=== PATIENT | male | born 1990 | race Two or more races ===

== ENCOUNTER 2018-01-06 11:16 | Day surgery (SDC) | payer OTHER ==
[2018-01-06] VITALS (10 sets, daily range): BP systolic 116–140; BP diastolic 59–89
[~2018-01-06] VITALS: Ht 167.6 cm; Wt 70.3 kg
--- NOTE | 2018-01-06 07:26 | Pre-Procedure Note/Attestation ---
Pre-Procedure Note/Attestation Complete Prior to Procedure Planned Procedure: left Procedure Narrative: shoulder arthroscopy possible labral repair Indications for Procedure Pre-Operative Diagnosis: left shoulder labral tear Attestation I attest that I discussed the nature of the procedure; its benefits; risks and complications; and alternatives (and the risks and benefits of such alternatives ), prior to the procedure, with the patient (or the patient's legal rental sales representative). I attest that, if there was a reasonable possibility of needing a blood transfusion, the patient (or the patient's legal rental sales representative) was given the [facility] standardized written summary, pursuant to the [place] Blood Safety Act ([place] Health and Safety Code # 1645, as amended). I attest that I re-evaluated the patient just prior to the surgery and that there has been no change in the patient's H&P, except as documented below: Eusebio Ashley MD Jan 06, 2018 07:26
--- NOTE | 2018-01-06 07:27 | Operative Note - PDOC ---
Operative Note Operative Note Pre-op Diagnosis: left shoulder labral tear Procedure: see op report Post-op Diagnosis: same as pre-op plus Operative Findings: consistent w/pre-op dx studies Anesthesia: general Specimen: none Complications: none Condition: stable Estimated Blood Loss: none Implant(s) used?: Yes Eusebio Ashley MD Jan 06, 2018 07:27
[~2018-01-06 11:16] MED LIST: D5 1/2NS 1,000 ML IV SCH; HYDROmorphone 1mg/ml Carpuject SUBQ PRN; NKM; Norco 5mg/325mg tab ORAL PRN; Tylenol #3 tab (300mg/30mg) ORAL PRN; ceFAZolin 1gm IVPB IVPB ONE; celeBREX 200mg Cap **SURGERY PATIENTS ONLY ORAL ONE; oxyCONTIN 20mg tab ORAL ONE
[2018-01-06] MEDS ORDERED: oxyCONTIN 20mg tab ORAL ONE (12:12)
[2018-01-06] MEDS ORDERED: celeBREX 200mg Cap **SURGERY PATIENTS ONLY ORAL ONE (12:12)
[2018-01-06] MEDS ORDERED: Lidocaine 1% MPF 10mg/ml 5ml ONE (13:00)
[2018-01-06] MEDS ORDERED: fentaNYL 100 mcg/2 mL IV ONE (13:05)
[2018-01-06] MEDS ORDERED: Midazolam 2mg/2ml Inj ONE (13:05)
[2018-01-06] MEDS ORDERED: Ketorolac 30mg Inj ONE ×2 (13:06→15:07)
[2018-01-06] MEDS ORDERED: Propofol 200mg/20ml IV ONE (13:06)
--- NOTE | 2018-01-06 13:17 | Anethesia Preoperative Eval ---
Anesthesia Pre-op PMH/ROS General Date of Evaluation: Jan 06, 2018 Time of Evaluation: 13:14 Anesthesiologist: Rosa ASA Score: ASA 2 Mallampati Score Class I : Soft palate, uvula, fauces, pillars visible Class II: Soft palate, uvula, fauces visible Class III: Soft palate, base of uvula visible Class IV: Only hard plate visible Mallampati Classification: Class II Surgeon: Dion Diagnosis: L shoulder pain Surgical Procedure: L schoulder sscope Anesthesia History: none Family History: no anesthesia problems Allergies: Coded Allergies: No Known Allergies (Unverified , 01/06/18) Medications: see eMAR Patient NPO?: Yes Past Medical History Cardiovascular: Denies: HTN, CAD, [place], valve dz, arrhythmia, other Pulmonary: Denies: asthma, COPD, NAHOMI, other Gastrointestinal/Genitourinary: Reports: GERD - mild; Denies: CRI, ESRD, other Neurologic/Psychiatric: Denies: dementia, CVA, depression/anxiety, TIA, other Endocrine: Denies: DM, hypothyroidism, steroids, other HEENT: Denies: cataract (L), cataract (R), glaucoma, [facility] (L), [facility] (R), other Hematology/Immune: Denies: anemia, DVT, bleeding disorder, other Musculoskeletal/Integumentary: Denies: OA, RA, DJD, DDD, edema, other PMH Narrative: as above PSxH Narrative: none Anesthesia Pre-op Phys. Exam Physician Exam Last Vital Signs Date Time Temp Pulse Resp B/P (MAP) Pulse Ox O2 Delivery O2 Flow Rate FiO2 01/06/18 12:09 97.0 58 18 116/64 99 Room Air Constitutional: NAD Neurologic: CN 2-12 intact Cardiovascular: RRR, no M/R/G Respiratory: CTA Gastrointestinal: S/NT/ND Airway Exam Mallampati Score: Class II MO: full Neck: flexible ROM: full Teeth: intact Dentures: no upper, no lower Anesthesia Pre-op A/P Labs see chart Studies Pre-op Studies: EKG - NSR Risk Assessment & Plan Assessment: ASA 2 Plan: GA with LMA L brachial plexus block for postoperative pain control Status Change Before Surgery: No Pre-Antibiotics Drug: Ancef 1gr. Given Within 1 Hr of Incision: Yes Time Given: 14:10 Arturo Lee MD Jan 06, 2018 13:17
[2018-01-06] MEDS ORDERED: LR 1000ml 1,000 ML IVLG SCH (13:18)
[2018-01-06] MEDS ORDERED: DiphenhydrAMINE 50mg/ml Inj IVP PRN (13:30)
[2018-01-06] MEDS ORDERED: Ketorolac 30mg Inj IV PRN (13:30)
[2018-01-06] MEDS ORDERED: fentaNYL 100 mcg/2 mL IV PRN (13:30)
[2018-01-06] MEDS ORDERED: Metoclopramide 10mg/2ml Inj IVP PRN (13:30)
[2018-01-06] MEDS ORDERED: Meperidine 50mg/ml Inj(FOR RIGORS ONLY) IV PRN (13:30)
[2018-01-06] MEDS ORDERED: EPINEPHrine 1mg/1ml Amp ONE (13:57)
[2018-01-06] MEDS ORDERED: Bupivacaine w/Epi 0.25% 30ml Vial INJ ONE (13:57)
[2018-01-06] MEDS ORDERED: Kenalog-40 1ml Vial ONE (13:57)
[2018-01-06] MEDS ORDERED: NS Irrig 4000ml IRRIG ONE (14:00)
[2018-01-06] MEDS ORDERED: LR 1000ml ONE (14:00)
[2018-01-06] MEDS ORDERED: Zemuron 50mg/5ml Inj IV ONE (14:12)
[2018-01-06] MEDS ORDERED: ePHEDrine 50mg/ml Inj ONE (14:43)
[2018-01-06] MEDS ORDERED: Sodium Chloride 10ml vial INJ ONE (14:43)
[2018-01-06] MEDS ORDERED: Morphine Sulfate PF 10 ML ONE (15:07)
[2018-01-06] MEDS ORDERED: Duramorph PF 10mg/10ml amp IV ONE (15:07)
--- NOTE | 2018-01-06 15:36 | Immediate Post-Op Evaluation ---
Immediate Post-Op Evalulation Immediate Post-Op Evalulation Procedure: L shoulder arthroscopy subacromion decompression Date of Evaluation: Jan 06, 2018 Time of Evaluation: 15:35 IV Fluids: 1000 Blood Products: none Estimated Blood Loss: min Urinary Output: none Blood Pressure Systolic: 134 Blood Pressure Diastolic: 68 Pulse Rate: 64 Respiratory Rate: 20 O2 Sat by Pulse Oximetry: 99 Temperature (Fahrenheit): 97.8 Pain Score (1-10): 2 Nausea: No Vomiting: No Complications none Patient Status: awake, patent, none Arturo Lee MD Jan 06, 2018 15:36
--- NOTE | 2018-01-06 16:37 | 48 Hour Post Anesthesia Eval ---
Post Anesthesia Evaluation Procedure: L shoulder arthroscopy subacromion decompression Date of Evaluation: Jan 06, 2018 Time of Evaluation: 16:36 Blood Pressure Systolic: 136 0: 84 Pulse Rate: 72 Respiratory Rate: 20 Temperature (Fahrenheit): 97.6 O2 Sat by Pulse Oximetry: 98 Airway: patent Nausea: No Vomiting: No Pain Intensity: 1 Hydration Status: adequate Cardiopulmonary Status: stable Mental Status/LOC: patient returned to baseline Follow-up Care/Observations: n/a Post-Anesthesia Complications: none Follow-up care needed: ready to discharge Arturo Lee MD Jan 06, 2018 16:37
--- NOTE | 2018-01-06 22:17 | Operative Note - Dictated ---
DATE OF OPERATION: 01/06/2018 PREOPERATIVE DIAGNOSIS: Left shoulder internal derangement, possible labral tear/impingement syndrome. POSTOPERATIVE DIAGNOSIS: Left shoulder traumatic impingement syndrome. PROCEDURE: Left shoulder diagnostic arthroscopy with left shoulder decompression bursectomy along the CA ligament. SURGEON: Eusebio Ashley M.D. ANESTHESIA: General with interscalene. INDICATION FOR PROCEDURE: The patient is a pleasant gentleman, who has had progressive left shoulder pain. The patient subsequently developed difficulty with overhead activities. He had an MRI, which showed a possible anterior labral tear and therefore, after failing conservative treatment, has elected to undergo a left shoulder diagnostic arthroscopy, possible repair versus debridement of the anterior labral tear with concurrent subacromial decompression bursectomy. Risks, limitations, expectations, and complications of procedure were discussed in detail. All questions addressed. DESCRIPTION OF PROCEDURE: After informed consent was obtained, the patient was brought to the operative room and the patient was placed under interscalene general anesthesia. Left shoulder was prepped and draped in a sterile manner. Time-out was performed. A posterolateral skin incision was then made. Trocar was introduced into the glenohumeral joint. A systematic tour of the shoulder was performed. There was no chondral damage. The anterior labrum actually appeared to be intact along with the superior labrum. The biceps tendon in the subscap was intact along with the articular side of the rotator cuff. No intra-articular loose bodies. At this point, the camera was placed in the subacromial space. Hypertrophic bursal tissue was visualized. Bursectomy was performed. The undersurface of the acromion was identified. CA ligament was released. Acromioplasty was started from lateral to medial and completed from posterior to anterior. Once that was completed, the instruments were removed. Portal sites were closed with 3-0 Monocryl sutures. Steri-Strips and sterile dressing were applied. The patient was awoken and taken to recovery room with stable vital signs. ESTIMATED BLOOD LOSS: None. COMPLICATIONS: None. SPECIMENS: None. IMPLANTS: None. Eusebio Ashley M.D. DR: KALA JOB#: [id number] CC:
== END 2018-01-06 17:10 | disposition home or self-care (01) ==
LOC: SUR 11:16
DX: M75.42 Impingement syndrome of left shoulder (principal); K21.9 Gastro-esophageal reflux disease without esophagitis
CPT/HCPCS: 29822; J0171; J1885; J2250; J2274; J2405; J2704; J3010; J3301; 94003; 94150